=== PATIENT | female | born 1985 | race Caucasian/White ===

== ENCOUNTER 2017-09-24 13:29 | Emergency (ER) | payer OTHER ==
[~2017-09-24] VITALS: Ht 165.1 cm; Wt 89.8 kg
[~2017-09-24 13:29] MED LIST: VENTOLIN HFA18 GM PO
[2017-09-24] MEDS ORDERED: DOXEPIN HCL50 MG (13:37)
[2017-09-24] MEDS ORDERED: SEROQUEL50 MG (13:37)
[2017-09-24] MEDS ORDERED: AMBIEN10 MG (13:38)
== END 2017-09-24 15:39 | disposition home or self-care (01) ==
LOC: ER 13:29
DX: N64.4 Mastodynia (principal)

== ENCOUNTER 2018-06-06 15:25 | Emergency (ER) | payer OTHER ==
[~2018-06-06] VITALS: Ht 165.1 cm; Wt 102.5 kg
[~2018-06-06 15:25] MED LIST changes: +AMBIEN10 MG; +DOXEPIN HCL50 MG; +SEROQUEL50 MG
== END 2018-06-06 20:36 | disposition home or self-care (01) ==
LOC: ER 15:25
DX: B34.9 Viral infection, unspecified (principal)